=== PATIENT | female | born 1955 ===

== ENCOUNTER 2017-08-01 08:48 | Day surgery (SDC) | payer OTHER ==
[2017-06-30 09:28] VITALS: BMI 29.8
[2017-08-01] MEDS ORDERED: Propofol 10 mg/ml Inj (20 ML) ONE ×2 (10:55→11:16)
[2017-08-01 12:46] VITALS: TEMP 97; O2SAT 100
[2017-08-01 12:51] VITALS: BP 118/69; PULSE 70; RESP 20
== END 2017-08-01 12:30 | disposition home or self-care (01) ==
LOC: C.ENDO 08:48
PROVIDERS: ATTEND Internal Medicine Gastroenterology
DX: Z12.11 Encounter for screening for malignant neoplasm of colon (principal); D12.3 Benign neoplasm of transverse colon
CPT/HCPCS: 45381; 45385; 88305; J2704